=== PATIENT | male | born 1995 | race Caucasian/White ===

== ENCOUNTER 2020-01-30 19:20 | Emergency (ER) | payer MEDICAID ==
[~2020-01-30] VITALS: Ht 170.2 cm; Wt 72.6 kg
[2020-01-30 19:30] VITALS: BP 125/64
--- NOTE | 2020-01-30 19:33 | NUR ---
To ED bed 05
[2020-01-30 19:40] VITALS: BP 125/64
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
[2020-01-30] MEDS ORDERED: LIDOCAINE MPF 1% 10 MG/ML VIAL INJ ONE (19:45)
[2020-01-30] MEDS ORDERED: KETOROLAC 30 MG/ML VIAL IM ONE (19:45)
[2020-01-30] MEDS ORDERED: BACITRACIN OINT 500 UNITS/GM PKT TP ONE ×2 (20:30→20:32)
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
== END 2020-01-30 20:35 | disposition home or self-care (01) ==
LOC: MED 19:20
DX: S01.01XA Laceration without foreign body of scalp, initial encounter (principal); S01.111A Laceration without foreign body of right eyelid and periocular area, initial encounter; Y04.2XXA Assault by strike against or bumped into by another person, initial encounter; Y93.89 Activity, other specified; Y92.89 Other specified places as the place of occurrence of the external cause; Y99.8 Other external cause status
CPT/HCPCS: 12001; 12011; 90471; 90715; 96372; 99284; J1885; J2001

== ENCOUNTER 2020-02-06 07:43 | Emergency (ER) | payer MEDICAID ==
[~2020-02-06] VITALS: Ht 170.2 cm; Wt 71.2 kg
[2020-02-06 07:45] VITALS: BP 116/78
--- NOTE | 2020-02-06 07:48 | NUR ---
Patient ambulated to bed 7. RN evaluating patient at bedside.
--- NOTE | 2020-02-06 07:58 | NUR ---
Dr Dunne at bedside examining pt
--- NOTE | 2020-02-06 08:00 | NUR ---
24y/o male presents to ED for suture removal to left wrist and staple removal from right side of head. denie pain/fever. Skin warm, dry, intact.
[2020-02-06 08:24] VITALS: BP 116/78
--- NOTE | 2020-02-06 08:25 | NUR ---
Patient discharged with v/s stable. Written and verbal after care instructions given and explained. Patient verbalized understanding. Ambulatory with steady gait. All questions addressed prior to discharge. Advised to follow up with PMD.
== END 2020-02-06 08:25 | disposition home or self-care (01) ==
LOC: MED 07:43
DX: S01.01XD Laceration without foreign body of scalp, subsequent encounter (principal); S01.81XD Laceration without foreign body of other part of head, subsequent encounter; X58.XXXD Exposure to other specified factors, subsequent encounter
CPT/HCPCS: 99281